=== PATIENT | female | born 1990 | race Caucasian/White ===

== ENCOUNTER → 2024-12-12 13:49 | Outpatient (CLI) | payer BC, SELFPAY | LOC: CAR 13:49 | PROVIDERS: PCP Student in an Organized Health Care Education/Training Program; Referring Provider Student in an Organized Health Care Education/Training Program; Visit Provider Student in an Organized Health Care Education/Training Program | DX: R55 Syncope and collapse (principal) | CPT/HCPCS: 93246 ==